=== PATIENT | female | born 1955 | race Caucasian/White ===

== ENCOUNTER → 2020-12-12 15:09 | Outpatient (CLI) | payer MEDICARE, SELFPAY ==
--- NOTE | ~2020-12-12 | MM_ITS ---
EXAMINATION: MM screening [facility] BI w joseph HISTORY: Screening mammogram TECHNIQUE: Craniocaudal and mediolateral oblique 3-D tomosynthesis images were obtained and synthetic 2-D images were generated. CAD analysis was submitted and interpreted. COMPARISON: 07/23/2019, 04/10/2018, 02/21/2016 bilateral digital screening mammogram examinations BREAST PARENCHYMAL COMPOSITION: The breasts are heterogeneously dense, which may obscure small masses . FINDINGS: There is a biopsy marker on the right; history of prior bilateral benign breast biopsies. T here is no evidence of suspicious mass, calcification, or architectural distortion to suggest maligna ncy in either breast. There has been no suspicious interval change. IMPRESSION: 1. No mammographic evidence of malignancy. 2. Recommend routine screening mammography in one year. BI-RADS Category 1: Negative Reviewed, dictated and finalized at location A. [employer]
== END ==
PROVIDERS: Visit Provider Obstetrics & Gynecology
DX: Z12.31 Encounter for screening mammogram for malignant neoplasm of breast (principal)
CPT/HCPCS: 77063; 77067

== ENCOUNTER 2021-04-04 13:26 | Emergency (ER) | payer MEDICARE, SELFPAY ==
--- NOTE | ~2021-04-04 | XR_ITS ---
EXAMINATION: XR foot RT min 3V DATE: 04/04/2021 13:45 INDICATION: Post traumatic pain at the lateral right forefoot TECHNIQUE: Dorsoplantar, two oblique and lateral views of the right foot were obtained. COMPARISON: None. FINDINGS: Mild hallux valgus. Subtle nondisplaced extra articular fracture extending obliquely across the proxi mal metadiaphyseal region of the fourth proximal phalanx. No other fractures identified. 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 IMPRESSION: 1. Nondisplaced extra articular fracture near the base of the right fourth proximal phalanx. Reviewed, dictated and finalized at location A. IMPRESSION: 1. Nondisplaced extra articular fracture near the base of the right fourth prox imal phalanx.
--- NOTE | 2021-04-04 13:37 | ED.LOWEXIN ---
HPI - Extremity Injury (Lower) General Chief Complaint: Extremity Injury, Lower Stated Complaint: Right foot Pain Source: patient Mode of arrival: ambulatory Limitations: no limitations History of Present Illness HPI Narrative: Patient is a 65-year-old female who presents complaining of right foot pain. Patient reports hitting foot on bed approximately 2 days ago. She reports tenderness with ambulation. Bruising noted to second third and fourth toes. Patient reports pain at third and fourth metatarsal. She reports taking [id number] medications for pain with limited relief. She denies other injuries. Related Data Home Medications Medication Instructions Recorded Confirmed aspirin 81 mg tablet,delayed 81 mg PO DAILY 02/23/20 01/11/21 release cholecalciferol (vitamin D3) 50 50 mcg PO DAILY 02/23/20 01/11/21 mcg (2,000 unit) capsule Allergies Allergy/AdvReac Type Severity Reaction Status Date / Time enoxaparin Allergy Intermediate Rash Verified 01/11/21 09:50 Review of Systems Review of Systems: Narrative: CONSTITUTIONAL: Denies fever, chills, or sweats. EYES: Denies visual changes, redness, or discharge. ENT: Denies rhinorrhea, congestion, sore throat, or otalgia. CARDIOVASCULAR: Denies chest pain, palpitations, or edema. RESPIRATORY: Denies cough or dyspnea. GASTROINTESTINAL: Denies abdominal pain, nausea, vomiting, or diarrhea. GENITOURINARY: Denies dysuria or hematuria. SKIN: Denies rash or itching. MUSCULOSKELETAL: Reports right foot pain NEUROLOGIC: Denies headache, numbness, dizziness, or weakness. PSYCHIATRIC: Denies anxiety or depression. [facility] Family History Family History Father Hypertension Grandparent Carcinoma of colon Other Family history of aortic aneurysm Social History Social History Smoking status: Former smoker Smoking end date: 10/07/80 Alcohol intake: current Comments At the time of signature, I have reviewed and agree with nursing past medical, surgical, social, and family history unless otherwise noted. Please see nursing chart for further information. There is no relevant family history pertinent to the presenting complaint. Exam Narrative: Exam Narrative: GENERAL: Well-appearing, well-nourished, and in no acute distress. HEAD: Normocephalic, atraumatic. EYES: EOMI. No redness or drainage. Conjunctiva are normal. ENT: Mucous membranes pink and moist. CHEST: No respiratory distress. Clear to auscultation. HEART: Regular rate and rhythm. EXTREMITIES: Ecchymosis to second third and fourth toes of right foot, tenderness with palpation over third and fourth metatarsal. SKIN: Warm, dry, no rash. NEURO: No focal deficits. Alert and oriented x3. Gait steady. PSYCH: Normal affect. No signs of depression or anxiety. MDM - Extremity Injury (Lower) MDM Narrative Medical decision making narrative: Patient has a fracture at the base of her fourth phalanx. Toes lenny tape, postop shoe given for comfort. Patient to follow-up with podiatry or orthopedics. Patient is stable for discharge to home with outpatient follow-up as discussed. Differential Diagnosis Differential diagnosis: Likely other (Fracture, contusion, sprain, strain) Imaging Data Radiologist's impression: ITS Impressions Foot X-Ray 04/04/21 13:48 IMPRESSION: 1. Nondisplaced extra articular fracture near the base of the right fourth proximal phalanx. Critical Care Time Critical Care Time Critical Care Time: No Discharge Plan Discharge Clinical Impression: Fracture, phalanx, foot Patient Disposition: Home, Self-Care Condition: Stable Additional Instructions: You may use Tylenol or ibuprofen for pain. Keep toes taped for comfort. Postop shoe for comfort. Follow-up with podiatry or orthopedics. Prescriptions: No Action Emgality Pen 120 mg/mL pen injector 120 mg subcut MONTHLY Qty: 1 RF: 2 cholecalcifero
[2021-04-04 13:38] VITALS: BP 136/60; PULSE 77; RESP 16; TEMP 36.6; O2SAT 100
== END 2021-04-04 14:05 | disposition home or self-care (01) ==
PROVIDERS: Emergency Provider Nurse Practitioner; PCP Internal Medicine
DX: S92.514A Nondisplaced fracture of proximal phalanx of right lesser toe(s), initial encounter for closed fracture (principal); W22.03XA Walked into furniture, initial encounter; Z79.82 Long term (current) use of aspirin; Z87.891 Personal history of nicotine dependence
CPT/HCPCS: 73630; 99214; G0463

== ENCOUNTER → 2022-03-06 11:15 | Outpatient (CLI) | payer MEDICARE, SELFPAY ==
--- NOTE | ~2022-03-06 | MM_ITS ---
EXAMINATION: MM screening [facility] BI w joseph HISTORY: Screening mammogram TECHNIQUE: Craniocaudal and mediolateral oblique 3-D tomosynthesis images were obtained and synthetic 2-D images were generated. CAD analysis was submitted and interpreted. COMPARISON: 12/12/2020, 07/23/2019, 04/10/2018 bilateral screening mammogram examinations BREAST PARENCHYMAL COMPOSITION: The breasts are heterogeneously dense, which may obscure small masses . FINDINGS: Biopsy marker on the right; history of benign stereotactic biopsy in 2004. History of prior benign excisional biopsy of left breast. There is no evidence of suspicious mass, calcification, or architectural distortion to suggest malignancy in either breast. There has been no suspicious interva l change. IMPRESSION: 1. No mammographic evidence of malignancy. 2. Recommend routine screening mammography in one year. BI-RADS Category 1: Negative Reviewed, dictated and finalized at location A.
== END ==
PROVIDERS: PCP Internal Medicine; Visit Provider Internal Medicine
DX: Z12.31 Encounter for screening mammogram for malignant neoplasm of breast (principal)
CPT/HCPCS: 77063; 77067

== ENCOUNTER 2022-04-06 16:18 | Emergency (ER) | payer MEDICARE, SELFPAY ==
--- NOTE | ~2022-04-06 | XR_ITS ---
EXAMINATION: XR forearm RT 2V INDICATION: Right forearm pain and swelling TECHNIQUE: Two views of the right forearm are obtained. COMPARISON: None available FINDINGS: There is a large area of dorsal soft tissue swelling overlying the distal radius and ulna. No underlying fracture is identified. Alignment at the elbow and wrist is normal. IMPRESSION: 1. Large area of dorsal soft tissue swelling overlying the distal radius and ulna without acute osseo us abnormality. Reviewed, dictated and finalized at location F. IMPRESSION: 1. Large area of dorsal soft tissue swelling overlying the distal radius and ul na without acute osseous abnormality.
[2022-04-06 16:20] VITALS: BP 129/79; PULSE 74; RESP 16; TEMP 36.2; O2SAT 100
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
== END 2022-04-06 17:53 | disposition home or self-care (01) ==
PROVIDERS: Emergency Provider Nurse Practitioner Family; PCP Internal Medicine
DX: S50.11XA Contusion of right forearm, initial encounter (principal); Z87.891 Personal history of nicotine dependence; W01.198A Fall on same level from slipping, tripping and stumbling with subsequent striking against other object, initial encounter; Y92.814 Boat as the place of occurrence of the external cause
CPT/HCPCS: 73090; 99283

== ENCOUNTER 2022-04-18 08:52 | Emergency (ER) | payer MEDICARE, SELFPAY ==
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
[2022-04-18 09:06] VITALS: BP 121/68; PULSE 69; RESP 16; TEMP 36.9; O2SAT 99
== END 2022-04-18 09:18 | disposition home or self-care (01) ==
PROVIDERS: Emergency Provider Nurse Practitioner Family; PCP Internal Medicine
DX: S50.11XD Contusion of right forearm, subsequent encounter (principal); W17.89XD Other fall from one level to another, subsequent encounter; Z87.891 Personal history of nicotine dependence; Z85.038 Personal history of other malignant neoplasm of large intestine; N18.30 Chronic kidney disease, stage 3 unspecified
CPT/HCPCS: 99211; G0463

== ENCOUNTER → 2023-08-05 11:41 | Outpatient (CLI) | payer MEDICARE, SELFPAY ==
--- NOTE | ~2023-08-05 | MM_ITS ---
EXAMINATION: MM screening [facility] BI w joseph HISTORY: Screening mammogram TECHNIQUE: Craniocaudal and mediolateral oblique 3-D tomosynthesis images were obtained and synthetic 2-D images were generated. CAD analysis was submitted and interpreted. COMPARISON: 03/06/2022, 12/12/2020, 07/23/2019 BREAST PARENCHYMAL COMPOSITION: The breasts are heterogeneously dense, which may obscure small masses . FINDINGS: No suspicious mass, calcification, or architectural distortion are identified in either rogelio ast to suggest malignancy. There has been no suspicious interval change. IMPRESSION: 1. No mammographic evidence of malignancy. 2. Recommend routine screening mammography in one year. BI-RADS Category 1: Negative Reviewed, dictated and finalized at location A.
== END ==
PROVIDERS: PCP Nurse Practitioner Family; Visit Provider Obstetrics & Gynecology
DX: Z12.31 Encounter for screening mammogram for malignant neoplasm of breast (principal)
CPT/HCPCS: 77063; 77067

== ENCOUNTER 2023-08-05 13:44 | Outpatient (CLI) | payer MEDICARE, SELFPAY ==
--- NOTE | ~2023-08-05 | US_ITS ---
EXAMINATION: US carotid duplex BI DATE: 08/05/2023 14:31 INDICATION: Right carotid bruit TECHNIQUE: Grayscale, color Doppler, and pulsed Doppler images of the cervical carotid arteries were obtained. The degree of vessel stenosis is placed in one of the following categories: normal, <50%, 5 0-69%, >=70% but less than near-occlusion, near-occlusion, or total occlusion. Note that percent sten osis relative to normal distal artery lumen diameter is indirectly measured from velocity measurement s as described by Joe, et al. Radiology 2003; 229:340-346. Notes: Normal: Peak systolic velocity <125 centimeters/sec and no plaque <50%. Peak systolic velocity <125 ( EDV <40; ICA/CCA PSV ratio <2.0; used these factors only a tandem lesions or low cardiac output or co ntralateral disease) 50-69 %: PSV 125-230 (EDV 40-100; ratio 2-4) >= 70% but less than near occlusion: PSV greater than 230 (EDV > 100; ratio> 4.0) Near Occlusion: PSV that is variable; markedly narrowed lumen Occlusion: Absent flow on color/spectral Doppler and no lumen on sorensen scale. COMPARISON: None. FINDINGS: RIGHT: The right common carotid artery (CCA) peak systolic velocity (PSV) is 68 cm/s. The right internal car otid artery (ICA) PSV is 94 cm/s. The right ICA end-diastolic velocity (EDV) is 38 cm/s. The right IC A/CCA PSV ratio is 1.4. The external carotid artery (ECA) PSV is 74 cm/s. There is antegrade flow in the right vertebral artery. LEFT: The left CCA PSV is 72 cm/s. The left ICA PSV is 73 cm/s. The left ICA EDV is 27 cm/s. The left ICA/C CA PSV ratio is 1.0. The ECA PSV is 56 cm/s. There is antegrade flow in the left vertebral artery. IMPRESSION: 1. Less than 50% stenosis in the right internal carotid artery by sonographic criteria. 2. Less than 50% stenosis in the left internal carotid artery by sonographic criteria. Reviewed, dictated and finalized at location A. IMPRESSION: 1. Less than 50% stenosis in the right internal carotid artery by sonographic andrea horne. 2. Less than 50% stenosis in the left internal carotid artery by sonographic annika alvarez.
== END 2023-08-05 13:45 | disposition home or self-care (01) ==
PROVIDERS: PCP Nurse Practitioner Family; Visit Provider Nurse Practitioner Family
DX: R09.89 Other specified symptoms and signs involving the circulatory and respiratory systems (principal); I65.23 Occlusion and stenosis of bilateral carotid arteries
CPT/HCPCS: 93880

== ENCOUNTER → 2023-09-25 11:46 | Outpatient (CLI) | payer MEDICARE, SELFPAY ==
--- NOTE | ~2023-09-25 | DEXA_ITS ---
Bone Density Report Name: MARTIN CROWDER Age: 68 Sex: Female Ethnicity: White Date of : 1955 Indication: osteopenia; height loss; history of glucocorticoids; postmenopausal Referring Provider: ADAN SONG Study: Bone densitometry was performed. Exam Date: September 25, 2023 Accession number: [id number] Bone Density: Region BMD T-score Z-score Classification AP Spine (L1, L2, L3) 0.875 -1.3 0.7 Osteopenia Femoral Neck (Left) 0.643 -1.9 -0.1 Osteopenia Total Hip (Left) 0.778 -1.3 0.1 Osteopenia Femoral Neck (Right) 0.770 -0.7 1.0 Normal Total Hip (Right) 0.805 -1.1 0.3 Osteopenia Total Hip Mean 0.792 -1.2 0.2 Osteopenia World Health Organization criteria for BMD impression classify patients as: Normal (T-score at or above -1.0), Osteopenia (T-score between -1.0 and -2.5), or Osteoporosis (T-score at or below -2.5). 10-year Fracture Risk(1): Major Osteoporotic Fracture 16% Hip Fracture 3.2% Reported Risk Factors: [place] (), Neck BMD=0.643, BMI=23.0, glucocorticoids (1) FRAX(R) Version 3.08. Fracture probability calculated for an untreated patient. Fracture probability may be lower if the patient has received treatment. Previous Exams: Region Exam Age BMD T-score BMD Change BMD Change Date g/cm2 vs Baseline vs Previous AP Spine(L1, L2, L3) 09/25/2023 68 0.875 -1.3 -0.001 -0.001 07/02/2019 63 0.875 -1.3 Total Hip(Left) 09/25/2023 68 0.778 -1.3 -0.014 -0.014 07/02/2019 63 0.792 -1.2 Total Hip(Right) 09/25/2023 68 0.805 -1.1 0.018 0.018 07/02/2019 63 0.787 -1.3 *Denotes significance at 95% confidence level, LSC for AP Spine = 0.022 g/cm2, LSC for Total Hip = 0.027 g/cm2 Clinical Information Provided by Patient: Has taken Glucocorticoids Has used the following medications: Vitamin D Patient maximum height was 66.5 Menopause Age: 53 Drinks caffeinated beverages Onset of menses at age 14 Number of children 2 Impression: The patient has low bone mass, based on the Left Femoral Neck T-score. The patient has an estimated ten-year risk of hip fracture of 3.2% and an estimated ten-year risk of major fracture of 16%, based on the WHO FRAX algorithm. The patient has risk factors, including: history of glucocorticoid therapy. No significant bone loss was observed. Discussion: BONE DENSITY IS LOW AT ONE OR MORE SKELETAL SITES. THE PATIENT'S BMD AND C
== END ==
PROVIDERS: PCP Nurse Practitioner Family; Visit Provider Nurse Practitioner Family
DX: M85.88 Other specified disorders of bone density and structure, other site (principal); Z13.820 Encounter for screening for osteoporosis
CPT/HCPCS: 77080

== ENCOUNTER 2024-10-27 13:41 | Emergency (ER) | payer MEDICARE, SELFPAY ==
--- NOTE | ~2024-10-27 | XR_ITS ---
EXAMINATION: XR chest 2V DATE: 10/27/2024 14:21 INDICATION: Persistent cough. TECHNIQUE: Frontal and lateral views of the chest were obtained. COMPARISON: Chest 2 views 10/02/2014 FINDINGS: There is mild scarring at the lung apices. No pleural effusion or pneumothorax. The heart s ize is normal. IMPRESSION: 1. Stable mild scarring at the lung apices. Reviewed, dictated and finalized at location B. ECT MANAGEMENT IT SPECIALIST
--- NOTE | 2024-10-27 13:48 | ED.URI ---
HPI - URI/Sore Throat General Chief Complaint: Upper Respiratory Infection Stated Complaint: COUGH Source: patient Mode of arrival: ambulatory Limitations: no limitations History of Present Illness HPI Narrative: 69 y/o female with hx lupus and colon cancer presented for c/o frequent nonproductive cough. Onset 2 days. Denies sob, wheezing but states she is coughing so frequently she cannot get a full breath before the next cough. Endorses associated headache. Denies sinus congestion, sore throat, n/v/d/f/c. Taking Robitussin. Related Data Home Medications ?Medication ?Instructions ?Recorded ?Confirmed ?Last Taken ?Type cholecalciferol (vitamin D3) 50 50 mcg PO DAILY 02/23/20 01/22/24 Unknown History mcg (2,000 unit) capsule vitamin B complex (B 1 tablet PO DAILY 08/02/21 01/22/24 Unknown History Complex-Vitamin B12 tablet) turmeric 100 mg-frank 150 cap PO 07/17/23 01/22/24 Unknown History mg-olive 50 mg-oreg 150 mg-capryl capsule Allergies Allergy/AdvReac Type Severity Reaction Status Date / Time enoxaparin Allergy Intermediate Rash Verified 10/27/24 14:06 Review of Systems Review of Systems: CONSTITUTIONAL: Denies body aches, fever, chills, or sweats. EYES: Denies visual changes, redness, or discharge. ENT: Denies rhinorrhea, congestion, sore throat, or otalgia. CARDIOVASCULAR: Denies chest pain, palpitations, or edema. RESPIRATORY: Reports cough, denies sob, wheezing. GASTROINTESTINAL: Denies abdominal pain, nausea, vomiting, or diarrhea. NEUROLOGIC: reports headache All systems reviewed & are unremarkable except as noted in HPI and below PMFSH Past Medical History Medical History Lupus History of colon cancer Dyslipidemia CKD (chronic kidney disease) stage 3, GFR 30-59 ml/min Migraine, unspecified, not intractable, without status migrainosus Overactive bladder Surgical History Surgical History History of appendectomy History of colon surgery Family History Family History Father Hypertension Lung cancer Grandparent Carcinoma of colon Mother Lung cancer Other Family history of aortic aneurysm Social History Social History Smoking packs per day: 1 Smoking cigarettes per day: 20.0 Years smoked: 15 Smoking pack-years: 15.00 Smoking status: Former smoker Second hand tobacco smoke exposure: No Smoking end date: 10/07/83 Alcohol intake: current Alcohol use details: social Substance use: never Substance use type: does not use Lack of Transportation: No Lack of Food: Never True Current Housing: I Have Housing Concerned About Future Housing: No Difficulty Paying Gas/Electric Bills: No Difficulty Paying for Meds: No Currently Unemployed: No Education: Decline to Answer Difficulty w/ Childcare or Family Care: No Comments At time of signature, I have reviewed and agree with nursing past medical, surgical, social and family history unless otherwise noted. Please see nursing chart for further information. There is no relevant family history pertinent to the presenting complaint Exam Narrative: GENERAL: Well-appearing, in no acute distress. EYES: EOMI. No redness or drainage. Conjunctivae normal. ENT: Mucous membranes pink and moist. No rhinorrhea. TMs normal bilaterally. Throat normal. Uvula midline. NECK: Normal AROM. Supple. CHEST: No respiratory distress. Lungs clear to all aviles. Frequent nonproductive cough. HEART: Regular rate and rhythm. No murmur appreciated. ABDOMEN: Soft, nontender, nondistended SKIN: Warm, dry, no rash. Capillary refill normal. Normal skin turgor. NEURO: Alert and oriented x3. Gait steady. PSYCH: Normal affect. Course Course Emergency Course: Patient is aware of diagnosis, understands and agrees to treatment plan. Anticipatory guidance given. Patient agrees to follow-up as directed and is aware of reasons to seek care at the emergency department. Portions of this record may have been created with voice recognition software Level of Care: Express Care Visit Vital Signs Vital signs: Vital Signs Temperature 97.7 F 10/27/24 13:54 Pulse Rate 86 10/27/24 13:54 Respiratory Rate 16 10/27/24 13:54 Blood Pressure 145/86 H 10/27/24 13:54 Pulse Oximetry 100 10/27/24 13:54 Temperature 97.7 F 10/27/24 13:54 Pulse Rate 86 10/27/24 13:54 Respiratory Rate 16 10/27/24 13:54 Blood Pressure 145/86 H 10/27/24 13:54 Pulse Oximetry 100 10/27/24 13:54 Oxygen Delivery Room Air 10/27/24 14:05 MDM - URI/Sore Throat MDM Narrative Medical decision making narrative: Negative flu and covid, result of CXR reviewed with pt. Discussed physical exam findings and RXs. Advised supportive measures and signs/symptoms to go to the ER. Pt is appropriate for outpt treatment and f/u. Differential Diagnosis Differential diagnosis: Likely other (Angioedema, perforation, asthma, pneumonia, cardiac tamponade pericarditis, pleural effusion, CHF, bronchitis, cardiac arrhythmia) Lab Data Labs: Lab Results 10/27/24 Range/Units 14:25 POC Influenza A Ag Negative (Negative) POC Influenza B Ag Negative (Negative) POC SARS CoV-2 Ag Negative (Negative) Imaging Data Radiologist's impression: Patient: Rosemarie Hanna : 1955 MR#: [id number] Age: 69 Acct:[id number] Loc: [facility] ADM Date: 10/27/24Attending Dr: Ordering Physician: Patricia Gifford APRN Date of Service: 10/27/24 Procedure(s): XR chest 2V Accession Number(s): [id number] cc: Patricia Gifford APRN; Kimberley Santiago APRN~ EXAMINATION: XR chest 2V DATE: 10/27/2024 14:21 INDICATION: Persistent cough. TECHNIQUE: Frontal and lateral views of the chest were obtained. COMPARISON: Chest 2 views 10/02/2014 FINDINGS: There is mild scarring at the lung apices. No pleural effusion or pneumothorax. The heart size is normal. IMPRESSION: 1. Stable mild scarring at the lung apices. Discharge Plan Discharge Clinical Impression: Bronchitis Patient Disposition: Home, Self-Care Condition: Stable Instructions: Antibiotic Form, Acute Bronchitis (ED) Additional Instructions: Acute bronchitis can be contagious because it is usually caused by infection with a virus or bacteria. It is usually for a few days but you can be contagious for up to one week. Take medication as directed; start steroid 10/28 Recommend Flonase spray and Zyrtec (or Claritin/Alexia) if you have nasal congestion over the counter Cough syrup may cause drowsiness; avoid driving or take it at night time. Tylenol 1000mg every 8 hours as needed for pain Symptomatic treatment includes: rest, fluids, and increase humidity of the air at home. Follow up with your primary care provider as needed in 1 week Go to the ER for worsening symptoms or concerns Patient Language: South Sudanese Prescriptions: New benzonatate 200 mg capsule 200 mg PO TID PRN (Reason: cough) Qty: 20 0RF codeine-guaifenesin [Guaifenesin AC] 10-100 mg/5 mL liquid 10 ml PO Q8H PRN (Reason: cough) Qty: 120 0RF prednisone 20 mg tablet 40 mg PO DAILY 4 Days Qty: 8 0RF Rx Instructions: start 10/28 No Action [id number]-lkkz-sqcxs-oreg-capry 100 mg-150 mg- 50 mg-150 mg capsule PO vitamin B complex [B Complex-Vitamin B12] Tablet 1 tablet PO DAILY cholecalciferol (vitamin D3) 50 mcg (2,000 unit) capsule 50 mcg PO DAILY triamterene-hydrochlorothiazid 37.5-25 mg tablet See Rx Instructions .ROUTE .COMPLEX Qty: 90 0RF Dose Instruction: TAKE 1 TABLET BY MOUTH ONCE DAILY IN THE MORNING Rx Instructions: TAKE 1 TABLET BY MOUTH ONCE DAILY IN THE MORNING Follow-up/Referrals: Kimberley Santiago APRN [Primary Care Provider] -
[2024-10-27 13:54] VITALS: BP 145/86; PULSE 86; RESP 16; TEMP 36.5; O2SAT 100
[2024-10-27] MEDS: predniSONE 20 MG TABLET 60 MG PO (14:26)
[2024-10-27 14:27] LABS: EDCOVIDSCREEN Negative (Negative); EDINFLUASCREEN Negative (Negative); EDINFLUBSCREEN Negative (Negative)
== END 2024-10-27 14:58 | disposition home or self-care (01) ==
PROVIDERS: Emergency Provider Nurse Practitioner Family; PCP Nurse Practitioner Family
DX: J40 Bronchitis, not specified as acute or chronic (principal); Z20.822 Contact with and (suspected) exposure to COVID-19; N18.30 Chronic kidney disease, stage 3 unspecified; E78.5 Hyperlipidemia, unspecified; Z87.891 Personal history of nicotine dependence
CPT/HCPCS: 71046; 87426; 87804; 99213; G0463; J7512

== ENCOUNTER 2024-10-29 14:38 | Emergency (ER) | payer MEDICARE, SELFPAY ==
[2024-10-29] VITALS (12 sets, daily range): BP systolic 139–142; BP diastolic 84–87; PULSE 68–118; RESP 11–22; TEMP 36.1; O2SAT 97–99
--- NOTE | ~2024-10-29 | XR_ITS ---
CHEST RADIOGRAPH, PA AND LATERAL CLINICAL HISTORY: cough, NAUSEAS, BODY ACHES, WEAKNESS . COMPARISON: 10/27/2024 TECHNIQUE: PA and lateral views of the chest. FINDINGS The cardiomediastinal silhouette is unremarkable. The lungs are clear. Visualized osseous structures and soft tissues are unremarkable. IMPRESSION: No focal infiltrate or effusion. Reviewed, dictated and finalized at location A. RVENTIONAL TECHNOLOGIST
[2024-10-29 18:12] LABS: Influenza A QL RT-PCR Positive (Negative); Influenza B QL RT-PCR Negative (Negative); RSV RNA, RT-PCR Negative (Negative); SARS-CoV-2 RNA PCR Negative (Negative)
[2024-10-29] MEDS: BENZONATATE 100 MG CAPSULE 200 MG PO (19:16)
[2024-10-29] MEDS: IPRATROPIUM 0.5 MG/ALBUTEROL SULFATE 2.5 MG AMPUL.NEB 3 ML INHALATION (19:40)
--- NOTE | 2024-10-29 19:50 | ED_ITS ---
HPI - General Adult General Chief complaint: Upper Respiratory Infection Stated complaint: cough and cold sx's Time Seen by Provider: 10/29/24 18:47 History of Present Illness HPI narrative: Patient 69-year-old female presents emergency department chief complaint of cough and tightness in chest. The patient reports she was seen in Urgent Care Saturday prescribed Tessalon Perles and prednisone. The patient reports that she has not gotten any better reports that she continues to cough. The patient reports no fever reports that the cough has been nonproductive Related Data Home Medications ?Medication ?Instructions ?Recorded ?Confirmed ?Last Taken ?Type cholecalciferol (vitamin D3) 50 50 mcg PO DAILY 02/23/20 01/22/24 Unknown History mcg (2,000 unit) capsule vitamin B complex (B 1 tablet PO DAILY 08/02/21 01/22/24 Unknown History Complex-Vitamin B12 tablet) turmeric 100 mg-frank 150 cap PO 07/17/23 01/22/24 Unknown History mg-olive 50 mg-oreg 150 mg-capryl capsule Allergies Allergy/AdvReac Type Severity Reaction Status Date / Time enoxaparin Allergy Intermediate Rash Verified 10/27/24 14:06 Review of Systems Review of Systems: A 10 system review of systems was completed on the patient and is negative except for what is stated in the HPI. Nursing and ancillary documentation was reviewed. [facility] Past Medical History Medical History Lupus History of colon cancer Dyslipidemia CKD (chronic kidney disease) stage 3, GFR 30-59 ml/min Migraine, unspecified, not intractable, without status migrainosus Overactive bladder Surgical History Surgical History History of appendectomy History of colon surgery Family History Family History Father Hypertension Lung cancer Grandparent Carcinoma of colon Mother Lung cancer Other Family history of aortic aneurysm Social History Social History Smoking packs per day: 1 Smoking cigarettes per day: 20.0 Years smoked: 15 Smoking pack-years: 15.00 Smoking status: Former smoker Second hand tobacco smoke exposure: No Smoking end date: 10/07/83 Alcohol intake: current Alcohol use details: social Substance use: never Substance use type: does not use Lack of Transportation: No Lack of Food: Never True Current Housing: I Have Housing Concerned About Future Housing: No Difficulty Paying Gas/Electric Bills: No Difficulty Paying for Meds: No Currently Unemployed: No Education: Decline to Answer Difficulty w/ Childcare or Family Care: No Exam Narrative: GENERAL: Well-appearing, well-nourished, and in no acute distress. HEAD: Normocephalic, atraumatic. EYES: PERRLA and EOMI. ENT: Nares clear, no rhinorrhea or epistaxis. Mucous membranes moist. NECK: Supple. CHEST: Clear to auscultation. No respiratory distress. HEART: Regular rate and rhythm. No murmur heard. Normal peripheral pulses. ABDOMEN: Soft, nontender, nondistended, normal active bowel sounds. EXTREMITIES: Normal range of motion. No edema. SKIN: Warm, dry, no rash. NEURO: No focal deficits. Alert and oriented x3. PSYCH: Normal mood and affect. Course Vital Signs Vital signs: Vital Signs Temperature 36.1 C L 10/29/24 15:04 Pulse Rate 118 H 10/29/24 15:04 Respiratory Rate 22 H 10/29/24 15:04 Blood Pressure 142/84 H 10/29/24 15:04 Pulse Oximetry 99 10/29/24 15:04 Oxygen Delivery Room Air 10/29/24 15:04 Temperature 36.1 C L 10/29/24 15:04 Pulse Rate 92 10/29/24 20:05 Respiratory Rate 16 10/29/24 20:05 Blood Pressure 142/84 H 10/29/24 15:04 Pulse Oximetry 97 10/29/24 19:34 Oxygen Delivery Room Air 10/29/24 15:21 Medical Decision Making MDM Narrative Medical decision making narrative: Differential diagnosis includes influenza, COVID, RSV Chest x-ray showed no focal infiltrate Vital Signs Vital Signs: Vital Signs Temperature 36.1 C L 10/29/24 15:04 Pulse Rate 118 H 10/29/24 15:04 Respiratory Rate 22 H 10/29/24 15:04 Blood Pressure 142/84 H 10/29/24 15:04 Pulse Oximetry 99 10/29/24 15:04 Oxygen Delivery Room Air 10/29/24 15:04 Temperature 36.1 C L 10/29/24 15:04 Pulse Rate 92 10/29/24 20:05 Respiratory Rate 16 10/29/24 20:05 Blood Pressure 142/84 H 10/29/24 15:04 Pulse Oximetry 97 10/29/24 19:34 Oxygen Delivery Room Air 10/29/24 15:21 Lab Data Labs: Lab Results 10/29/24 Range/Units 17:31 Influenza A (RT-PCR) Positive A (Negative) Influenza B (RT-PCR) Negative (Negative) RSV (RT-PCR) Negative (Negative) SARS-CoV-2 RNA (RT-PCR) Negative (Negative) Discharge Plan Discharge Clinical Impression: Influenza A, Acute upper respiratory infection Patient Disposition: Home, Self-Care Condition: Stable Instructions: Antibiotic Form, Influenza (ED), Upper Respiratory Infection (ED) Patient Language: Yoruba Prescriptions: New hydrocodone-homatropine [Hycodan] 5-1.5 mg/5 mL (5 mL) syrup 5 ml PO Q6H PRN (Reason: cough) 3 Days Qty: 60 0RF No Action benzonatate 200 mg capsule 200 mg PO TID PRN (Reason: cough) Qty: 20 0RF codeine-guaifenesin [Guaifenesin AC] 10-100 mg/5 mL liquid 10 ml PO Q8H PRN (Reason: cough) Qty: 120 0RF prednisone 20 mg tablet 40 mg PO DAILY 4 Days Qty: 8 0RF Rx Instructions: start 10/28 eqdupfem-kwxk-jffom-oreg-capry 100 mg-150 mg- 50 mg-150 mg capsule PO vitamin B complex [B Complex-Vitamin B12] Tablet 1 tablet PO DAILY cholecalciferol (vitamin D3) 50 mcg (2,000 unit) capsule 50 mcg PO DAILY triamterene-hydrochlorothiazid 37.5-25 mg tablet See Rx Instructions .ROUTE .COMPLEX Qty: 90 0RF Dose Instruction: TAKE 1 TABLET BY MOUTH ONCE DAILY IN THE MORNING Rx Instructions: TAKE 1 TABLET BY MOUTH ONCE DAILY IN THE MORNING albuterol sulfate 90 mcg/actuation HFA aerosol inhaler 2 inh inhalation Q4H PRN (Reason: shortness of breath or wheezing) Qty: 8.5 0RF Follow-up/Referrals: Kimberley Santiago APRN [Primary Care Provider] - Time of Disposition: 21:01
[2024-10-29] MEDS: HYDROcodone/acetaminophen (*CRX) 5-325 MG TABLET 1 TAB PO (20:20)
--- OUTSIDE RECORDS SUMMARY | 2024-10-30 05:47 | XMS_ITS | Patient Health Summary ---
Author Organization [facility] [employer] Address [address] [place] [address] Care Team Providers Care Senior Clinical Data Analyst Name Role Phone Seth Meyer MD Primary Care Provider [phone] Note from [facility],non-owned Affiliates and Associated Physician Practices is amultiple site organization consisting of ambulatory clinics and hospital sitesin [place], [place], [place] and [place]. This disclosure is being madepursuant to the Care Everywhere program and may not contain all information available regarding this patient. Last updated 18.[facility] Allergies No known active allergies Medications * Be aware that medications may not be up to date on this document. Alwaysverify current medications with the patient. * topiramate (TOPIRAGEN) 50 MG tablet Take 50 mg by mouth 2 times daily * triamterene-hydroCHLOROthiazide (DYAZIDE) 37.5-25 MG capsule Take 1 capsule by mouth once daily * benzonatate (TESSALON) 200 MG capsule(Started 08/01/2017) Take 1 capsule by mouth 3 times daily as needed for Cough * albuterol HFA (PROAIR HFA) 108 (90 BASE) MCG/ACT inhaler(Started 08/01/2017) Inhale 2 puffs by mouth every 4 hours as needed for Shortness of Breath, Wheezing or Cough * methylPREDNISolone (MEDROL DOSEPAK) 4 MG tablet(Started 08/01/2017) Take by mouth as directed Use dose pack of 4mg tabs, start 24 mg/day, taper by 4mg/day over 6 days per pkg instructions. Take with food. Social History Tobacco Use Types Packs/Day Years Used Date Smoking Tobacco: Former Smokeless Tobacco: Never Sex and Gender Information Value Date Recorded Sex Assigned at Not on file Gender Identity Not on file Sexual Orientation Not on file Last Filed Vital Signs Vital Sign Reading Time Taken Comments Blood Pressure 112/70 08/01/2017 9:48 AM CDT Pulse 81 08/01/2017 9:48 AM CDT Temperature 36.7 ??C (98 ??F) 08/01/2017 9:48 AM CDT Respiratory Rate 20 08/01/2017 9:48 AM CDT Oxygen Saturation 99% 08/01/2017 9:48 AM CDT Inhaled Oxygen Concentration - - Weight 56.7 kg (125 lb) 08/01/2017 9:48 AM CDT Height 168.9 cm (5' 6.5 ) 08/01/2017 9:48 AM CDT Body Mass Index 19.87 08/01/2017 9:48 AM CDT Care Teams Senior Clinical Data Analyst Relationship Specialty Start Date End Date Seth Meyer MD [address] [place] [id number] PCP - General Internal Medicine 08/01/17
--- OUTSIDE RECORDS SUMMARY | 2024-10-30 05:47 | XMS_ITS | Encounter Summary ---
Author Organization [facility] Address [address] [place] [address] Phone Care Team Providers Care Information Systems Security Analyst Name Role Phone Erik Pate MD Primary Care Provider [phone] Encounter Details Date Type Department Care Team (Late st Contact Info) Description 08/29/2020 Orders Only [facility] Scanning, Provider Social History Tobacco Use Types Packs/Day Years Used Date Smoking Tobacco: Former Cigarettes 1 14 1 0 - 1983 Smokeless Tobacco: Never Alcohol Use Standard Drinks/Week Comments Yes 0 (1 standard drink = 0.6 oz pur e alcohol) rare Comments No Sex and Gender Information Value Date Recorded Sex Assigned at Not on file 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 Gender Identity Not on file Sexual Orientation Not on file documented as of this encounter Plan of Treatment Not on file documented as of this encounter Procedures Procedure Name Priority Date/Time Associated Diagnosis Comments SCAN - LABS 08/29/2020 documented in this encounter Results * SCAN - LABS (08/29/2020) us Provider Scanning Final Result documented in this encounter Visit Diagnoses Not on filedocumented in this encounter Care Teams Information Systems Security Analyst Relationship Specialty Start Date End Date Erik Pate MD [address] [place] [address] PCP - General Internal Medicine 03/20/19 documented as of this encounter
--- OUTSIDE RECORDS SUMMARY | 2024-10-30 05:47 | XMS_ITS | Encounter Summary ---
Author Organization [facility] Address [address] [place] [address] Phone Care Team Providers Care Research And Development Specialist Name Role Phone Seth Meyer MD Primary Care Provider [phone] Erik Pate MD Primary Care Provider [phone] Encounter Details Date Type Department Care Team (Latest Contact Info) Description 08/16/2011 Orders Only [facility] Scanning, Provider Social History Tobacco Use Types Packs/Day Years Used Date Smoking Tobacco: Never Assessed Alcohol Use Standard Drinks/Week Comments Yes 0 (1 standard drink = 0.6 oz pur e alcohol) Comments Unknown Sex and Gender Information Value Date Recorded Sex Assigned at Not on file 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 Gender Identity Not on file Sexual Orientation Not on file documented as of this encounter Plan of Treatment Not on file documented as of this encounter Procedures Procedure Name Priority Date/Time Associated Diagnosis Comments SCAN - RADIOLOGY/IMAGING 08/16/2011 documented in this encounter Results * SCAN - RADIOLOGY/IMAGING (08/16/2011) Anatomical Region Laterality Modality Other us Provider Scanning Final Result documented in this encounter Visit Diagnoses Not on filedocumented in this encounter Care Teams Research And Development Specialist Relationship Specialty Start Date End Date Seth Meyer MD [address] [facility] [place] [id number] PCP - General 07/13/08 03/19/19 Erik Pate MD [address] [place] [address] PCP - General Internal Medicine 03/20/19 documented as of this encounter
--- OUTSIDE RECORDS SUMMARY | 2024-10-30 05:47 | XMS_ITS | Clinical Summary ---
Author Organization [facility] Address [address] [place] [address] Care Team Providers Care Pharmacy Technician Per Diem Name Role Phone Seth Meyer MD Primary Care Provider [phone] Source Comments [facility],non-owned Affiliates and Associated Physician Practices is amultiple site organization consisting of ambulatory clinics and hospital sitesin [place], [place], [place] and [place]. This disclosure is being madepursuant to the Care Everywhere program and may not contain all information available regarding this patient. Last updated 18.[facility] Allergies No known active allergies Medications * Be aware that medications may not be up to date on this document. Alwaysverify current medications with the patient. Medication Sig Dispensed Refills Start Date End Date Status topiramate (TOPIRAGEN) 50 MG tablet Take 50 mg by mouth 2 times daily Active triamterene-hydroCHL OROthiazide (DYAZIDE) 37.5-25 MG capsule Take 1 capsule by mouth once daily Active benzonatate (TESSALON) 200 MG capsuleIndications:A cute bronchitis, unspecified organism Take 1 capsule by mouth 3 times daily as needed for Cough 30 capsule 08/01/2017 Active albuterol HFA (PROAIR HFA) 108 (90 BASE) MCG/ACT inhalerIndications:A cute bronchitis, unspecified organism Inhale 2 puffs by mouth every 4 hours as needed for Shortness of Breath, Wheezing or Cough 1 Inhaler 08/01/2017 Active methylPREDNISolone (MEDROL DOSEPAK) 4 MG tabletIndications:Ac deborah bronchitis, unspecified organism Take by mouth as directed Use dose pack of 4mg tabs, start 24 mg/day, taper by 4mg/day over 6 days per pkg instructions. Take with food. 1 Each 08/01/2017 Active Family History Medical History Relation Name Comments Congenital Heart defect Brother 15 y ears of age Hypertension Father Cancer - Lung Mother Relation Name Status Comments Brother Father Alive Mother Social History Tobacco Use Types Packs/Day Years [...] Mass Index 19.87 08/01/2017 9:48 AM CDT Plan of Treatment Health Maintenance Due Date Last Done Comments BONE DENSITY TESTING 1955 COLOGUARD (AGES 45-75) - COL ON CA SCREENING 1955 COLON MONITORING 1955 COLONOSCOPY - COLON CA SCREENING 1955 CT COLONOGRAPHY - COLON CA SCREENING 1955 Colorectal Cancer Screening 1955 FIT - COLON CA SCREENING 1955 FLEX SIG - COLON CA SCREENING 1955 LIPID TESTING 1955 MAMMOGRAM 1955 HEPATITIS C SCREENING 07/17/1972 DTAP/TDAP/TD VACCINES (1 - Tdap) 1973 PNEUMOCOCCAL VACCINE 50+ (1 of 1 - PCV) 2004 ZOSTER VACCINE (1 of 2) 2004 COVID-19 VACCINE (1 - 2023-2 5 season) 2024 INFLUENZA VACCINE (#1) 2024 DEPRESSION SCREENING 10/07/2024 Respiratory Syncytial Virus (RSV) Vaccine Pt: or over 60 yrs (1 - 1-dose 75+ series) 2029 HEPATITIS B VACCINE Aged Out No longe r eligible based on patient's age to complete this topic HIB VACCINE Aged Out No longer eligi ble based on patient's age to complete this topic HPV VACCINE Aged Out No longer eligi ble based on patient's age to complete this topic MENINGOCOCCAL (Group B) VACCINE Aged Out No longer eligible based on patient's age to complete this topic MENINGOCOCCAL VACCINE Aged Out No li hector eligible based on patient's age to complete this topic Care Teams Pharmacy Technician Per Diem Relationship Specialty Start Date End Date Seth Meyer MD [address] [place] [id number] PCP - General Internal Medicine 08/01/17
--- OUTSIDE RECORDS SUMMARY | 2024-10-30 05:47 | XMS_ITS | Encounter Summary ---
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 Gender Identity Not on file Sexual Orientation Not on file documented as of this encounter Plan of Treatment Not on file documented as of this encounter Procedures Procedure Name Priority Date/Time Associated Diagnosis Comments SCAN - LABS 07/02/2019 documented in this encounter Results * SCAN - LABS (07/02/2019) us Provider Scanning Final Result documented in this encounter Visit Diagnoses Not on filedocumented in this encounter Care Teams Electrical Tester Relationship Specialty Start Date End Date Erik Pate MD [address] [place] [address] PCP - General Internal Medicine 03/20/19 documented as of this encounter
--- OUTSIDE RECORDS SUMMARY | 2024-10-30 05:47 | XMS_ITS | Encounter Summary ---
Author Organization [facility] Address [address] [place] [address] Phone Care Team Providers Care Industrial Ecology Technician Name Role Phone Seth Meyer MD Primary Care Provider [phone] Erik Pate MD Primary Care Provider [phone] Encounter Details Date Type Department Care Team (Late st Contact Info) Description 03/12/2019 Orders Only [facility] Scanning, Provider Social History Tobacco Use Types Packs/Day Years Used Date Smoking Tobacco: Former Cigarettes 1 14 1 0 - 1983 Smokeless Tobacco: Never Alcohol Use Standard Drinks/Week Comments Yes 0 (1 standard drink = 0.6 oz pur e alcohol) rare Comments No Sex and Gender Information Value Date Recorded Sex Assigned at Not on file 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 Gender Identity Not on file Sexual Orientation Not on file documented as of this encounter Plan of Treatment Not on file documented as of this encounter Procedures Procedure Name Priority Date/Time Associated Diagnosis Comments SCAN - LABS 03/12/2019 documented in this encounter Results * SCAN - LABS (03/12/2019) us Provider Scanning Final Result documented in this encounter Visit Diagnoses Not on filedocumented in this encounter Care Teams Industrial Ecology Technician Relationship Specialty Start Date End Date Seth Meyer MD [address] [place] [address] PCP - General 07/13/08 03/19/19 Erik Pate MD [address] [facility] [address] [place] [address] PCP - General Internal Medicine 03/20/19 documented as of this encounter
--- OUTSIDE RECORDS SUMMARY | 2024-10-30 05:47 | XMS_ITS | Encounter Summary ---
Author Organization 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
--- OUTSIDE RECORDS SUMMARY | 2024-10-30 05:47 | XMS_ITS | Encounter Summary ---
Author Organization [facility] Address [address] [place] [address] Phone Care Team Providers Care Point Of Care Technician Name Role Phone Seth Meyer MD Primary Care Provider [phone] Erik Pate MD Primary Care Provider [phone] Encounter Details Date Type Department Care Team (Late st Contact Info) Description 04/10/2018 Orders Only [facility] Scanning, Provider Social History Tobacco Use Types Packs/Day Years Used Date Smoking Tobacco: Never Alcohol Use Standard Drinks/Week Comments Yes 0 (1 standard drink = 0.6 oz pur e alcohol) Comments Unknown Sex and Gender Information Value Date Recorded Sex Assigned at Not on file 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 Gender Identity Not on file Sexual Orientation Not on file documented as of this encounter Plan of Treatment Not on file documented as of this encounter Procedures Procedure Name Priority Date/Time Associated Diagnosis Comments SCAN - LABS 04/10/2018 documented in this encounter Results * SCAN - LABS (04/10/2018) us Provider Scanning Final Result documented in this encounter Visit Diagnoses Not on filedocumented in this encounter Care Teams Point Of Care Technician Relationship Specialty Start Date End Date Seth Meyer MD [address] [facility] [address] [place] [address] PCP - General 07/13/08 03/19/19 Erik Pate MD [address] [address] PCP - General Internal Medicine 03/20/19 documented as of this encounter
--- OUTSIDE RECORDS SUMMARY | 2024-10-30 05:47 | XMS_ITS | Clinical Summary ---
Author Organization [facility] Address [address] [place] [address] Care Team Providers Care Distributor Advertising Material Name Role Phone Erik Pate MD Primary Care Provider [phone] Allergies Active Allergy Reactions Criticality Noted Date Comments Enoxaparin Rash Medium 02/10/2019 Medications B-complex with vitamin C capsuleIndicati ons:Vitamin Deficiency Prevention Take 1 capsule by mouth nightly Active triamterene-hyd roCHLOROthiazid e (MAXZIDE,DYAZID E) 37.5-25 mg per tablet/capsuleI ndications:flui d retention Take 1 tablet/capsul e by mouth nightly Active ZOLMitriptan (ZOMIG) 5 mg tabletIndicatio ns:Migraine Take 1 tablet (5 mg total) by mouth once as needed for migraine Active calcium carbonate/vitam in D3 (CALCIUM 500 + D ORAL) Take by mouth Ac tive valACYclovir (VALTREX) 1 gram tablet Take 1 tablet (1,000 mg total) by mouth daily 11/21/2023 Active Active Problems Problem Noted Date Diagnosed Date Adenomatous polyp 04/24/2023 Chronic idiopathic constipation 06/13/2021 Basal cell carcinoma (BCC) of left lateral brow 05/22/2019 History of colon cancer 02/10/2019 Malignant neoplasm of ascending colon (CMS/HCC) 12/30/2018 Tortuous colon 11/18/2018 Overview (11/18/2018): Added automatically from request for surgery [id number] Positive colorectal cancer screening using Colog uard test 11/18/2018 Overview (11/18/2018): Added automatically from request for surgery [id number] Basal cell carcinoma (BCC) o f skin of face left preauricular 06/26/2018 False-positive serological test for syphilis Overview (01/11/2017): FALSE POS SERO TEST-SYPH Systemic lupus erythematosus (CMS/HCC) 4 Overview (01/11/2017): SYST LUPUS ERYTHEMATOSUS Inflamed seborrheic keratosis 05/15/2013 Skin neoplasm 05/15/2013 Overview (01/17/2018): Description: Multiple pink papules over the bilateral lower extremities and R hip concerning for BCC. Photographs taken. Pt to go on vacation next week and would prefer to defer biopsy until later visit. Counseled on risks/benefits/alternatives. Pt will make f/u appointment for biopsy of all concerning lesions. Actinic keratosis 05/14/2012 Immunizations Name Administration Dates Next Due Moderna SARS-CoV-2 Monovalent Vaccination (12+ Y RS) 11/03/2020,10/06/2020 Surgical History Surgery Date Site/Laterality Comments SMALL BOWEL RESECTION 10/07/1970 - 10/06/1971 Small bowel resection APPENDECTOMY Appendectomy OTHER SURGICAL HISTORY D&C BREAST BIOPSY Breast biopsy COLONOSCOPY ADHESIOLYSIS 10/07/1970 - 10/06/1971 HERNIA REPAIR 10/07/1970 - 10/06/1971 Hernia repair EXPLORATORY LAPAROTOMY W/ BOWEL RESECTION 01/14/2019 Exploratory laparotomy with right colectomy. COLECTOMY Medical History Medical History Date Comments Superficial basal cell carcinoma 2008 Cancer, basal Cell Hx Other Medical chronic constip ation Endometritis endometriosis Hx Other Medical Headache, migra ine Rosacea Rosacea Hx Other Medical Fibrocystic dis ease Basal cell carcinoma of skin of other part of trunk Basal cell carcinoma of skin of trunk - (Added by TW Conv) Malignant neoplasm of skin Skin cancer - NER. ABCDE's reviewed. Counseled on photoprotection. (Added by TW Conv) Chronic constipation Colon polyp Lupus Colon cancer (CMS/HCC) (HCC) Mitral valve prolapse Chronic kidney disease Lupus (systemic lupus erythe matosus) (CMS/HCC) (HCC) Family History Medical History Relation Name Comments Cancer Father Lung cancer Father Cancer Mother Lung cancer Mother Lung cancer Paternal Grandfather Colon cancer Paternal Grandmother Rheum arthritis Sister Rheumatoid a rthritis; Relation Name Status Comments Father Mother Paternal Grandfather Paternal Grandmother Sister Social History Tobacco Use Types Packs/Day Years Used Date Smoking Tobacco: Former Cigarettes 1 14 1 0 - 1983 Smokeless Tobacco: Never Tobacco Cessation:Counseling Given: Not Answered Alcohol Use Standard Drinks/Week Comments Yes 0 (1 standard drink = 0.6 oz pur e alcohol) rare AUDIT-C Answer Date Recorded Q1: How often do you have a drink containing alcohol? Never 01/20/2024 Q2: How many drinks containi ng alcohol do you have on a typical day when you are drinking? Patient does not drink Q3: How often do you have si x or more drinks on one occasion? Never 01/20/2024 Personal Safety Answer Date Recorded Have you ever been in or are you currently in a harmful physical or emotional relationship or is someone making you feel afraid or unsafe? 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 Gender Identity Not on file Sexual Orientation Not on file Obstetrics History Last Filed Vital Signs Vital Sign Reading Time Taken Comments Blood Pressure 120/71 01/20/2024 1:14 PM CDT Pulse 68 01/20/2024 1:14 PM CDT Temperature 36.6 ??C (97.8 ??F) 07/24/2023 11:02 AM C DT Respiratory Rate 17 07/04/2023 3:10 PM CDT Oxygen Saturation 99% 01/20/2024 1:14 PM CDT Inhaled Oxygen Concentration - - Weight 65.8 kg (145 lb) 01/20/2024 1:14 PM CDT Height 167.6 cm (5' 6 ) 01/20/2024 1:14 PM CDT Body Mass Index 23.4 01/20/2024 1:14 PM CDT Plan of Treatment Health Maintenance Due Date Last Done Comments Breast Cancer Screening-Mammogram 1955 Depression Screening 1955 Hepatitis C Screening 1955 Osteoporosis Screening-Bone Density Scan 1955 DTaP/Tdap/Td Vaccine (1 - Tdap) 1965 Hepatitis B Screening 1972 Zoster Vaccine (1 of 2) 2004 Pneumococcal vaccine 65+ (1 of 1 - PCV) 2019 Well Visit 65+ 2019 Covid-19 Vaccine (5 - 2023-2 5 season) 2024 08/22/2022, 08/02/2021, 11/03/2020, Additional history exists Influenza Vaccine (#1) 2024 , 06/20/2020, 06/29/2019, Additional history exists Fall Risk Assessment 07/04/2024 07/04/2023 Colon Cancer Screening-Colonoscopy 07/04/2033 07/04/2023, 12/14/2022, 12/10/2019, Additional history exists Colon Cancer Screening-CT Colonography Discontinued 07/04/2023, 12/14/2022, 12/10/2019, Additional history exists Colon Cancer Screening-DNA Stool Discontinued 07/04/2023, 12/14/2022, 12/10/2019, Additional history exists Colon Cancer Screening-FIT Discontinued 07/04, 12/14/2022, 12/10/2019, Additional history exists Colon Cancer Screening-Sigmoidoscopy Discontinued 07/04/2023, 12/14/2022, 12/10/2019, Additional history exists Procedures Procedure Name Priority Date/Time Associated Diagnosis Comments COLONOSCOPY 07/04/2023 2:00 PM CDT from Last 3 Months or Most Recently Relevant to Health Maintenance Results * COLONOSCOPY (07/04/2023 2:00 PM CDT) Anatomical Region Laterality Modality Other Narrative Procedure Note Early, Mehreen Estes MD - 07/04/2023 2:00 PM CDT [facility] Patient Name: Martin Hanna Procedure Date: 07/04/2023 2:00 PM Date of : 1955 Admit Type: Outpatient Age: 67 Gender: Female Attending MD: Mehreen Alexander M.D. Room: [facility] ENDOSCOPY ROOM 9 Note Status: Finalized Procedure: Colonoscopy Indications: Surveillance: Personal history of piecemeal removalof adenoma on last colonoscopy (less than 1 year ago), Last colonoscopy: December 2022 Referring MD: Erik Pate M.D. Providers: Mehreen Alexander M.D. Medicines: Monitored Anesthesia Care Complications: No immediate complications. Estimated Blood Loss: Estimated blood loss: none. Procedure: Pre-Anesthesia Assessment: - Immediately prior to administration ofmedications, the patient was re-assessed for adequacy to receive sedatives. - The risks and benefits of the procedure and the sedation options and risks were discussed with the patient. All questions were answered and informed consent was obtained. The benefits, risks and alternatives of theprocedure and sedation were discussed and informed consentwas obtained. All questions were answered. Please referto the signed informed consent document in the medical record. The scope was passed under direct vision.The [id number] endoscope was introduced through the anus and advanced to the ileocolonicanastomosis. The colonoscopy was technically difficult andcomplex due to significant looping. Successful completionof the procedure was aided by applying abdominalpressure and using a Colowrap. The patient tolerated the procedure well. The quality of the bowelpreparation was evaluated using the BBPS ([place] BowelPreparation Scale) with scores of: Transverse Colon = 2 (minor amount of residual staining, small fragments ofstool and/or opaque liquid, but mucosa seen well) andLeft Colon = 3 (entire mucosa seen well with no residual staining, small fragments of stool or opaqueliquid). The total BBPS score equals 5. The quality of the bowel preparation was good. The bowel preparationused was polyethylene glycol (PEG) via split dose instruction. The quality of the bowel preparationwas good. Findings: There was evidence of a prior end-to-side ileo-colonic anastomosis at the hepatic flexure. This was patent and was characterized by healthy appearing mucosa. The anastomosis was traversed. The exam was otherwise without abnormality. No evidence of residual polyp was seen. Impression: - Patent end-to-side ileo-colonic anastomosis, characterized by healthy appearing mucosa. - The examination was otherwise normal. No evidenceof residual polyp was seen. - No specimens collected. Recommendation: - Repeat colonoscopy in 3 years for surveillance. Attending Participation: I personally performed the entire procedure. Electronically signed by Mehreen Alexander MD Mehreen Alexander M.D. 07/04/2023 2:50:22 PM . Number of Addenda: 0 Note Initiated On: 07/04/2023 2:00 PM Recognized by the [place] [employer] for promoting quality in endoscopy Mehreen Alexander MD ENDOSCOPY PROCEDURES Final Res ult from Last 3 Months or Most Recently Relevant to Health Maintenance Insurance MEDICARE [facility] CHOICE PLUS MEDICARE AARP MEDICARE [facility] Advance Directives For more information, please contact: [phone] * Full Code (Latest Code Status on File) Date Activated Date Inactivated Comments 07/04/2023 1:10 PM 07/04/2023 7:37 PM * Full Code Date Activated Date Inactivated Comments 12/14/2022 12:15 PM 12/14/2022 6:38 PM * Full Code Date Activated Date Inactivated Comments 12/10/2019 7:36 AM 12/10/2019 1:48 PM * Full Code Date Activated Date Inactivated Comments 01/14/2019 1:02 PM 01/19/2019 6:50 PM * Full Code Date Activated Date Inactivated Comments 12/09/2018 11:46 AM 12/09/2018 6:53 PM Care Teams Distributor Advertising Material Relationship Specialty Start Date End Date Erik Pate MD [address] [place], [place] [id number] PCP - General Internal Medicine 03/20/19
--- OUTSIDE RECORDS SUMMARY | 2024-10-30 05:47 | XMS_ITS | Referral Summary ---
Author Organization [facility] [employer] Address [address] [place] [address] Care Team Providers Care Camp Guard Name Role Phone Seth Meyer MD Primary Care Provider [phone] Source Comments [facility] [employer],non-owned Affiliates and Associated Physician Practices is amultiple site organization consisting of ambulatory clinics and hospital sitesin [place], [place], [place] and [place]. This disclosure is being madepursuant to the Care Everywhere program and may not contain all information available regarding this patient. Last updated 18.[facility] [employer] Allergies No known active allergies Medications * [...] Take with food. 1 Each 08/01/2017 Active Social History Tobacco Use Types Packs/Day Years [...] 08/01/2017 9:48 AM CDT Plan of Treatment Not on file Care Teams Camp Guard Relationship Specialty Start Date End Date Seth Meyer MD [address] [place] [address] PCP - General Internal Medicine 08/01/17
--- OUTSIDE RECORDS SUMMARY | 2024-10-30 05:47 | XMS_ITS ---
Author Organization [facility] Address [address] [place] [address] Care Team Providers Care Bung Driver Name Role Phone Erik Pate MD Primary Care Provider [phone] Active Problems Problem Noted Date Diagnosed Date Adenomatous polyp 04/24/2023 Chronic idiopathic constipation 06/13/2021 Basal cell carcinoma (BCC) of left lateral brow 05/22/2019 History of colon cancer 02/10/2019 Malignant neoplasm of ascending colon (CMS/HCC) 12/30/2018 Tortuous colon 11/18/2018 Overview (11/18/2018): Added automatically from request for surgery [id number] Positive colorectal cancer screening using Colog uard test 11/18/2018 Overview (11/18/2018): Added automatically from request for surgery [id number] Basal cell carcinoma (BCC) o f skin [...] of all concerning lesions. Actinic keratosis 05/14/2012 Current Oncology Plans No current plan information found. Past Plans No past plan information found. Radiation Treatments * No radiation treatments are documented for this patient in [facility]. Treatments may have been administered in another system. Lifetime Dose Tracking * Chemical Lifetime Dose Automatic Entry Manual Entr y DLP 4,362 mGycm 4,362 mGycm 0 mGycm
--- OUTSIDE RECORDS SUMMARY | 2024-10-30 05:47 | XMS_ITS | Encounter Summary ---
Author Organization [facility] Address [address] [place] [address] Phone Care Team Providers Care Industry Consultant Name Role Phone Seth Meyer MD Primary Care Provider [phone] Erik Pate MD Primary Care Provider [phone] Encounter Details Date Type Department Care Team (Late st Contact Info) Description 06/06/2017 Orders Only [facility] Scanning, Provider Social History Tobacco Use Types Packs/Day Years Used Date Smoking Tobacco: Never Alcohol Use Standard Drinks/Week Comments Yes 0 (1 standard drink = 0.6 oz pur e alcohol) Comments Unknown Sex and Gender Information Value Date Recorded Sex Assigned at Not on file 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 Gender Identity Not on file Sexual Orientation Not on file documented as of this encounter Plan of Treatment Not on file documented as of this encounter Procedures Procedure Name Priority Date/Time Associated Diagnosis Comments SCAN - LABS 06/06/2017 documented in this encounter Results * SCAN - LABS (06/06/2017) us Provider Scanning Final Result documented in this encounter Visit Diagnoses Not on filedocumented in this encounter Care Teams Industry Consultant Relationship Specialty Start Date End Date Seth Meyer MD [address] [facility] [address] [place] [address] PCP - General 07/13/08 03/19/19 Erik Pate MD [address] [address] PCP - General Internal Medicine 03/20/19 documented as of this encounter
--- OUTSIDE RECORDS SUMMARY | 2024-10-30 05:47 | XMS_ITS | Referral Summary ---
Author Organization [facility] Address [address] [place] [address] Care Team Providers Care Geography Instructor Name Role Phone Erik Pate MD Primary Care Provider [phone] Allergies Active Allergy Reactions Criticality Noted Date [...] (11/18/2018): Added automatically from request for surgery [id number] Positive colorectal cancer screening using Colog uard test 11/18/2018 Overview (11/18/2018): Added automatically from request for surgery [id number] Basal cell carcinoma (BCC) o f skin [...] SARS-CoV-2 Monovalent Vaccination (12+ Y RS) 11/03/2020,10/06/2020 Social History Tobacco Use Types Packs/Day Years Used Date Smoking Tobacco: Former Cigarettes 1 14 1 970 - 1984 Smokeless Tobacco: Never Tobacco Cessation:Counseling Given: Not [...] on file 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 Gender Identity Not on file Sexual Orientation [...] 01/20/2024 1:14 PM CDT Plan of Treatment Not on file Procedures Procedure Name Priority Date/Time Associated Diagnosis Comments COLONOSCOPY 07/04/2023 2:00 PM CDT from Last 3 Months or Most Recently Relevant to Health Maintenance Results * COLONOSCOPY (07/04/2023 2:00 PM CDT) Anatomical Region Laterality Modality Other Narrative Procedure Note Mehreen Alexander MD - 07/04/2023 2:00 PM CDT [facility] Patient Name: Martin Hanna Procedure Date: 07/04/2023 2:00 PM Date of : 1955 Admit Type: Outpatient Age: 67 Gender: Female Attending MD: Mehreen Alexander M.D. Room: [facility] ENDOSCOPY ROOM 9 Note Status: Finalized Procedure: [...] The scope was passed under direct vision.The [id number] endoscope was introduced through the anus and advanced to the ileocolonicanastomosis. The colonoscopy was technically difficult andcomplex due to significant looping. Successful completionof the procedure was aided by applying abdominalpressure and using a Colowrap. The patient tolerated the procedure well. The quality of the bowelpreparation was evaluated using the BBPS ([place] BowelPreparation Scale) with scores of: Transverse Colon [...] On: 07/04/2023 2:00 PM Recognized by the [place] [employer] G[employer]intestinal [employer] for promoting quality in endoscopy Mehreen Alexander MD ENDOSCOPY PROCEDURES Final Res ult from Last 3 Months or Most Recently Relevant to Health Maintenance [place] [address] [facility] CHOICE PLUS MEDICARE [facility] MEDICARE AARP Advance Directives For more information, please contact: [phone] * Full Code (Latest Code Status on [...] 11:46 AM 12/09/2018 6:53 PM Care Teams Geography Instructor Relationship Specialty Start Date End Date Erik Pate MD [address] [place] [address] PCP - General Internal Medicine 03/20/19
== END 2024-10-29 21:12 | disposition home or self-care (01) ==
PROVIDERS: Physician Assistant; Emergency Provider Emergency Medicine; PCP Nurse Practitioner Family
DX: J10.1 Influenza due to other identified influenza virus with other respiratory manifestations (principal); Z85.038 Personal history of other malignant neoplasm of large intestine; E78.5 Hyperlipidemia, unspecified; N18.30 Chronic kidney disease, stage 3 unspecified; M32.9 Systemic lupus erythematosus, unspecified; Z87.891 Personal history of nicotine dependence; Z20.822 Contact with and (suspected) exposure to COVID-19
CPT/HCPCS: 71046; 87637; 94640; 99283; A9270

== ENCOUNTER 2024-11-20 12:38 | Outpatient (CLI) | payer MEDICARE, SELFPAY ==
--- NOTE | ~2024-11-20 | MM_ITS ---
EXAMINATION: MM screening watson BI w joseph HISTORY: Screening TECHNIQUE: Craniocaudal and mediolateral oblique 3-D tomosynthesis images were obtained and synthetic 2-D images were generated. CAD analysis was submitted and interpreted. COMPARISON: Comparison to multiple prior studies sequentially, with oldest reviewed study dated 02/20. BREAST PARENCHYMAL COMPOSITION: Dense: The breasts are heterogeneously dense, which may obscure small masses FINDINGS: There is no evidence of suspicious mass, calcification, or architectural distortion to sugg est malignancy in either breast. There has been no suspicious interval change. IMPRESSION: 1. No mammographic evidence of malignancy. 2. Recommend routine screening mammography in one year. BI-RADS Category 1: Negative Reviewed, dictated and finalized at location [facility]
== END 2024-11-20 12:39 | disposition home or self-care (01) ==
LOC: MICIMG 12:40
PROVIDERS: PCP Nurse Practitioner Family; Visit Provider Obstetrics & Gynecology
DX: Z12.31 Encounter for screening mammogram for malignant neoplasm of breast (principal)
CPT/HCPCS: 77063; 77067